=== PATIENT | male | born 1970 | race Caucasian/White ===

== ENCOUNTER 2023-12-03 11:37 | Emergency (ER) | payer MEDICAID ==
[~2023-12-03] VITALS: Ht 188 cm; Wt 86.4 kg
[2023-12-03 12:20] VITALS: BP 157/105; PULSE 107; TEMP 99.4; O2SAT 97
[2023-12-03] MEDS ORDERED: dexamethasone sod phosphate 10mg/ml inj IM STA (12:27)
[2023-12-03] MEDS ORDERED: ketorolac trometh inj. 60 MG/2 ML VIAL IM ONE (12:30)
[2023-12-03] MEDS ORDERED: PRED20TA PO (12:32)
[2023-12-03 12:46] VITALS: RESP 18
== END 2023-12-03 12:51 | disposition home or self-care (01) ==
LOC: ER 11:39
DX: M25.532 Pain in left wrist (principal); R20.0 Anesthesia of skin; Z79.899 Other long term (current) drug therapy
CPT/HCPCS: 96372; 99284; J1100; J1885